=== PATIENT | female | born 1985 | race Asian ===

== ENCOUNTER 2017-02-27 20:48 | Emergency (ER) | payer OTHER ==
[~2017-02-27] VITALS: Ht 160 cm; Wt 71.5 kg
[2017-02-27] MEDS ORDERED: [UNRECOGNIZED DRUG - REMARK] PO (20:53)
[2017-02-27 22:53] VITALS: BP 124/65
== END 2017-02-27 22:54 | disposition home or self-care (01) ==
LOC: EMS 20:49
DX: M25.511 Pain in right shoulder (principal); Z88.6 Allergy status to analgesic agent; V49.50XA Passenger injured in collision with unspecified motor vehicles in traffic accident, initial encounter; Y93.89 Activity, other specified; Y92.89 Other specified places as the place of occurrence of the external cause; Y99.8 Other external cause status
CPT/HCPCS: 99284